=== PATIENT | male | born 1965 | race Caucasian/White ===

== ENCOUNTER 2023-05-21 07:17 | Day surgery (SDC) | payer BC, OTHER ==
[~2023-05-21] VITALS: Ht 170.2 cm; Wt 79.3 kg
[~2023-05-21 07:17] MED LIST: NS 1,000 ML IV ONE
[2023-05-21] MEDS ORDERED: propofoL 200 MG/20 ML VIAL As Ordered ONE (08:49)
[2023-05-21 08:55] VITALS: TEMP 97
[2023-05-21 09:08] VITALS: BP 142/81; O2SAT 99
== END 2023-05-21 09:26 | disposition home or self-care (01) ==
LOC: M OPP 07:17
PROVIDERS: ATTEND Internal Medicine Gastroenterology
DX: Z12.11 Encounter for screening for malignant neoplasm of colon (principal); K64.8 Other hemorrhoids; Z87.891 Personal history of nicotine dependence